=== PATIENT | female | born 1990 ===

== ENCOUNTER 2016-10-21 09:34 | Emergency (ER) | payer MEDICAID ==
[2016-10-21 09:44] VITALS: BP 116/80; PULSE 60; RESP 20; TEMP 98.5; O2SAT 97
--- NOTE | 2016-10-21 10:02 | ED PDOC ---
Arrival/HPI - General Chief Complaint: Back Pain Time Seen by Provider: 10/21/16 09:51 Historian: Patient - History of Present Illness Narrative History of Present Illness (Text): 10/21/16 09:50 Jerica Jensen is a 25 year old female who presents to the emergency department complaining of sharp, mid-lower back pain for 2 days. Patient states that sometimes she experiences shooting pain down her right leg and numbness to her right great toe. Patient notes that her pain worsens with walking and some movement. 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 Patient denies any fever, chills, chest pain, shortness of breath, nausea, vomiting, diarrhea, urinary symptoms, neck pain, headache, dizziness, or any other complaints. No saddle anesthesia. No weakness. No incontinence. Time/Duration: < week Symptom Onset: Gradual Symptom Course: Unchanged Severity Level: Moderate Activities at Onset: Rest Context: Home Past Medical History - Provider Review Nursing Documentation Reviewed: Yes - Infectious Disease Hx of Infectious Diseases: None - Pulmonary Hx Asthma: Yes - Psychiatric Hx Substance Use: Yes - Surgical History Other/Comment: cleft palate repair age of 1. - Anesthesia Hx Anesthesia: Yes Hx Anesthesia Reactions: No Hx Malignant Hyperthermia: No Family/Social History - Physician Review Nursing Documentation Reviewed: Yes Family/Social History: No Known Family HX Smoking Status: Never Smoked Hx Alcohol Use: No Hx Substance Use: Yes Substance used: marijuana Allergies/Home Meds Allergies/Adverse Reactions: Allergies pcn Adverse Reaction (Uncoded 10/21/16 09:44) RASH Home Medications: Home Meds Medication Instructions Recorded Confirmed Albuterol HFA [Ventolin HFA 90 2 inhaler INH QID PRN 10/21/16 10/21/16 mcg/actuation (8 g)] Review of Systems - Physician Review All systems were reviewed & negative as marked: Yes - Review of Systems Constitutional: absent: Fevers, Night Sweats Eyes: absent: Vision Changes ENT: absent: Hearing Changes Respiratory: absent: SOB Cardiovascular: absent: Chest Pain Gastrointestinal: absent: Abdominal Pain Genitourinary Female: absent: Dysuria, Urine Output Changes Musculoskeletal: Back Pain (with pain shooting down to right leg) Skin: absent: Rash Neurological: absent: Headache, Dizziness Endocrine: absent: Diaphoresis Hemo/Lymphatic: absent: Adenopathy Psychiatric: absent: Depression Physical Exam Vital Signs Reviewed: Yes Vital Signs Temp Pulse Resp BP Pulse Ox 10/21/16 09:36 98.5 F 60 20 116/80 97 Temperature: Afebrile Blood Pressure: Normal Pulse: Regular Respiratory Rate: Normal Appearance: Positive for: Well-Appearing, Non-Toxic, Comfortable Pain Distress: None Mental Status: Positive for: Alert and Oriented X 3 - Systems Exam Head: Present: Atraumatic, Normocephalic Pupils: Present: PERRL Extroacular Muscles: Present: EOMI Conjunctiva: Present: Normal Mouth: Present: Moist Mucous Membranes Neck: Present: Normal Range of Motion Respiratory/Chest: Present: Clear to Auscultation, Good Air Exchange. No: Respiratory Distress, Accessory Muscle Use Cardiovascular: Present: Regular Rate and Rhythm, Normal S1, S2. No: Murmurs Abdomen: Present: Normal Bowel Sounds. No: Tenderness, Distention, Peritoneal Signs Back: Present: Other (tenderness to right-sided lower lumbar and sciatic area; No incontinence, No saddle anesthesia, No weakness) Upper Extremity: Present: Normal Inspection. No: Cyanosis, Edema Lower Extremity: Present: Normal Inspection. No: Edema Neurological: Present: GCS=15, CN II-XII Intact, Speech Normal Skin: Present: Warm, Dry, Normal Color. No: Rashes Psychiatric: Present: Alert, Oriented x 3, Normal Insight, Normal Concentration Medical Decision Making ED Course and Treatment: 10/21/16 09:50 Impression: 25 year old female complaining of mid to right-sided lower back pain with shooting pains down right leg for 2 days. Differential Diagnosis include but are not limited to: Sciatica Plan: -- Flexeril -- Motrin Progress Notes: 10/21/16 10:05 Patient is able to walk without ataxia. She is not driving home so is able to take a dose of flexeril now. Given stretching exercises for sciatica. She will follow up with her primary care doctor. - Medication Orders Current Medication Orders: Discontinued Medications Cyclobenzaprine HCl (Flexeril) 5 mg PO STAT STA Stop: 10/21/16 09:57 Last Admin: 10/21/16 10:03 Dose: 5 mg Ibuprofen (Motrin Tab) 600 mg PO STAT STA Stop: 10/21/16 09:57 Last Admin: 06/03/17 10:03 Dose: 600 mg - Scribe Statement The provider has reviewed the documentation as recorded by the Steffen Espinosa Provider Scribe Attestation: All medical record entries made by the Annaibe were at my direction and personally dictated by me. I have reviewed the chart and agree that the record accurately reflects my personal performance of the history, physical exam, medical decision making, and the department course for this patient. I have also personally directed, reviewed, and agree with the discharge instructions and disposition. Disposition/Present on Arrival - Present on Arrival Any Indicators Present on Arrival: No History of DVT/PE: No History of Uncontrolled Diabetes: No Urinary Catheter: No History of Decub. Ulcer: No History Surgical Site Infection Following: None - Disposition Have Diagnosis and Disposition been Completed?: Yes Diagnosis: Sciatica Disposition: HOME/ ROUTINE Disposition Time: 10:12 Patient Plan: Discharge Condition: GOOD Discharge Instructions (ExitCare): Sciatica (ED) Additional Instructions: Mikey, thank you for letting us take care of you today. Your provider was Dr. Yanes. You were treated for Sciatica; Lumbar strain. The emergency medical care you received today was directed at your acute symptoms. If you were prescribed any medication, please fill it and take as directed. It may take several days for your symptoms to resolve. Return to the Emergency Department if your symptoms worsen, do not improve, or if you have any other problems. Please contact your doctor or call one of the physicians/clinics you have been referred to that are listed on the Patient Visit Information form that is included in your discharge packet. Bring any paperwork you were given at discharge with you along with any medications you are taking to your follow up visit. Our treatment cannot replace ongoing medical care by a primary care provider (PCP) outside of the emergency department. Thank you for allowing the [facility] team to be part of your care today. If you had an X-Ray or CT scan: A Radiologist will review the ED reading if any change in treatment is needed we will contact you. If you had a blood, urine, or wound culture: It will take several days for the results, if any change in treatment is needed we will contact you. If you had an STI test: It will take 48 hours for the results. Please call after 1 week if you have not heard back. Prescriptions: Cyclobenzaprine [Flexeril] 5 mg PO Q8 PRN #20 tab PRN Reason: Muscle Spasm Ibuprofen [Motrin] 600 mg PO Q6 PRN #30 tab PRN Reason: Pain, Moderate (4-7) Referrals: [facility], [Non-Staff] - Follow up with primary Forms: [employer] (Djiboutian), WORK NOTE
== END 2016-10-21 10:30 | disposition home or self-care (01) ==
LOC: ED 09:34
DX: M54.30 Sciatica, unspecified side (principal)

== ENCOUNTER 2017-07-01 20:12 | Emergency (ER) | payer MEDICAID ==
[2017-07-01 20:29] VITALS: TEMP 98.6
[2017-07-01] MEDS ORDERED: Morphine 2 mg/ml ISec IVP STA (20:34)
--- NOTE | 2017-07-01 20:42 | ED PDOC ---
Arrival/HPI - General Chief Complaint: Abdominal Pain Time Seen by Provider: 07/01/17 20:14 Historian: Patient EM Caveat: Acuity of Condition - History of Present Illness Narrative History of Present Illness (Text): 07/01/17 20:36 Pt is a 26 year old female who presents with severe abdominal pain and nausea and vaginal bleeding since this morning s/p D&C on Sunday by [employer] Dr. Sara Pacheco. Pt reports an uncomplicated procedure after a failed of 6 1/2 weeks. Pt began to experience intense cramping and passing blood clots this am. Denies foul vaginal odor, syncope, chest pain, shortness of breath, headache, GIB, fever, chills, diarrhea. Pt states a loss of approx 2 cups of blood and clots since 4pm today. Time/Duration: Prior to Arrival, 4-6 hours Symptom Onset: Sudden Symptom Course: Worsening Quality: Aching, Cramping Severity Level: 10, Moderate, Severe Activities at Onset: Rest, Light Context: Home Past Medical History - Provider Review Nursing Documentation Reviewed: Yes - Travel History Have you recently traveled outside [place] w/in the past 3 mons?: No - Infectious Disease Hx of Infectious Diseases: None - Pulmonary Hx Asthma: Yes - Endocrine/Metabolic Hx Hypothyroidism: No - Hematological/Oncological Hx AIDS: No - Integumentary Hx Basal Cell Carcinoma: No - Musculoskeletal/Rheumatological Hx Falls: No - Gastrointestinal Hx Gastrointestinal Disorders: No - Genitourinary/Gynecological Hx Genitourinary Disorders: Yes Other/Comment: D&C 06/30/17 - Psychiatric Hx Psychophysiologic Disorder: No Hx Substance Use: Yes - Surgical History Hx Dilation and Curettage: Yes (06/30/17) Other/Comment: cleft palate repair age of 1. - Anesthesia Hx Anesthesia: Yes Hx Anesthesia Reactions: No Hx Malignant Hyperthermia: No Family/Social History - Physician Review Nursing Documentation Reviewed: Yes Family/Social History: Unknown Family HX Smoking Status: Never Smoked Hx Alcohol Use: No Hx Substance Use: Yes Substance used: marijuana Allergies/Home Meds Allergies/Adverse Reactions: Allergies Penicillins Adverse Reaction (Mild, Verified 07/01/17 20:24) RASH Review of Systems - Review of Systems Constitutional: Normal Eyes: Normal ENT: Normal Respiratory: Normal Cardiovascular: Normal Gastrointestinal: Abdominal Pain, Nausea, Vomiting Genitourinary Female: Normal, Vaginal Bleeding (passing clots) Musculoskeletal: Normal Skin: Normal Neurological: Normal Endocrine: Normal Hemo/Lymphatic: Normal Psychiatric: Normal Physical Exam Vital Signs Reviewed: Yes Vital Signs Temp Pulse Resp BP Pulse Ox 07/01/17 20:26 98.6 F 94 H 18 118/73 98 Temperature: Afebrile Blood Pressure: Normal Pulse: Regular Respiratory Rate: Normal Appearance: Positive for: Uncomfortable Pain Distress: Severe Mental Status: Positive for: Alert and Oriented X 3 - Systems Exam Head: Present: Atraumatic, Normocephalic Pupils: Present: PERRL Extroacular Muscles: Present: EOMI Conjunctiva: Present: Normal Mouth: Present: Moist Mucous Membranes Neck: Present: Normal Range of Motion Respiratory/Chest: Present: Clear to Auscultation, Good Air Exchange. No: Respiratory Distress, Accessory Muscle Use Cardiovascular: Present: Regular Rate and Rhythm, Normal S1, S2. No: Murmurs Abdomen: Present: Tenderness, Normal Bowel Sounds. No: Distention, Peritoneal Signs Genitourinary/Pelvic Exam: Present: Vaginal Bleeding Back: Present: Normal Inspection Upper Extremity: Present: Normal Inspection. No: Cyanosis, Edema Lower Extremity: Present: Normal Inspection. No: Edema Neurological: Present: GCS=15, CN II-XII Intact, Speech Normal Skin: Present: Warm, Dry, Normal Color. No: Rashes Psychiatric: Present: Alert, Oriented x 3, Normal Insight, Normal Concentration Medical Decision Making ED Course and Treatment: 07/01/17 20:45 Impression Pt is a 26 year old female who presents with severe abdominal pain and nausea and vaginal bleeding since this morning s/p D&C on Sunday by [employer] Dr. Sara Pacheco. Plan Pain management-->Morphine 2 mg ivp Zofran for nausea and emesis CBC, CMP, UA Progress Note After receiving zofran and morphine, pt lying comfortably in bed PE sig for LLQ pain and suprapubic pain on palpation; Pelvic exam reveals blood at the introitus, no clots appreciated; Dispo home with Naproxen 500 mg q12 F/U w [employer] - Lab Interpretations Lab Results: 07/01/17 20:35 07/01/17 20:35 Lab Results 07/01/17 20:35: Sodium 141, Potassium 3.7, Chloride 102, Carbon Dioxide 24, Anion Gap 18, BUN 7, Creatinine 0.7, Est GFR ( Amer) > 60, Est GFR (Non- Af Amer) > 60, Random Glucose 131 H, Calcium 9.4, Total Bilirubin 0.8, AST 22, ALT 28, Alkaline Phosphatase 69, Total Protein 7.8, Albumin 4.4, Globulin 3.4, Albumin/Globulin Ratio 1.3 07/01/17 20:35: WBC 12.0 H, RBC 4.60, Hgb 13.5, Hct 39.2, MCV 85.2, MCH 29.3, MCHC 34.4, RDW 13.1, Plt Count 202, MPV 10.6, Gran % 80.0 H, Lymph % (Auto) 14.5 L, Mccormick % (Auto) 4.3, Eos % (Auto) 0.9 L, Baso % (Auto) 0.3, Gran # 9.61 H , Lymph # (Auto) 1.7, Mccormick # (Auto) 0.5, Eos # (Auto) 0.1, Baso # (Auto) 0.03 - Medication Orders Current Medication Orders: Discontinued Medications Morphine Sulfate (Morphine) 2 mg IVP STAT STA Stop: 07/01/17 20:35 Last Admin: 07/01/17 20:45 Dose: 2 mg MAR Pain Assessment Document 07/01/17 20:45 JOL (Rec: 07/01/17 20:45 [id number] Pain Reassessment Is this a pain reassessment? No Sleep Is patient sleeping during reassessment? No Presence of Pain Presence of Pain Yes Pain Scale Used Pain Scale Used Numeric Location Upper or Lower Lower Pain Location Body Site Abdomen Description Intensity of Pain at present 8 Acceptable Level of Pain 2 Pain Behavior Moaning Withdrawal from Touch Grasping Site Restlessness Facial Grimacing IVP Administration Document 07/01/17 20:45 JOL (Rec: 07/01/17 20:45 JOL [id number]) Charges for Administration # of IVP Administrations 1 Ondansetron HCl (Zofran Inj) 4 mg IVP STAT STA Stop: 07/01/17 20:35 Last Admin: 07/01/17 20:45 Dose: 4 mg IVP Administration Document 07/01/17 20:45 JOL (Rec: 07/01/17 20:45 JOL [id number]) Charges for Administration # of IVP Administrations 1 Disposition/Present on Arrival - Present on Arrival Any Indicators Present on Arrival: Yes History of DVT/PE: No History of Uncontrolled Diabetes: No Urinary Catheter: No History of Decub. Ulcer: No History Surgical Site Infection Following: None - Disposition Have Diagnosis and Disposition been Completed?: Yes Diagnosis: Dysmenorrhea, Uterine cramping Disposition: HOME/ ROUTINE Disposition Time: 21:54 Patient Plan: Discharge Condition: STABLE Discharge Instructions (ExitCare): Dysmenorrhea (ED), Naproxen (By mouth) Additional Instructions: Dear Jerica, We are sending you home with a medication that works well to relieve uterine cramping and inflammation. Please ensure that you take the medication as directed, drink plenty of fluids and rest. Take the Naproxen to reduce pain and inflammation but make sure you have a meal first before taking it. You may also try a warm compress on the low back and a cool ice/gel pack on the lower abdominal area to give you relief. If you experience severe fever, pain, chest or abdominal pain or shortness of breath of any other alarming symptoms, return to the emergency room immediately. Please follow up with your Primary Doctor and [employer] as soon as possible. All the best in your recovery. Prescriptions: Naproxen 500 mg PO Q12 5 Days #10 ect Referrals: Kai Raman, [Non-Staff] - Follow up with primary Forms: [email or web address] (Surinamese)
[2017-07-01 21:18] LABS: BASO # 0.03 K/mm3 (0.0-2.0); BASO % 0.3 % (0.0-3.0); EOS # 0.1 (0.0-0.7); EOS % 0.9 % (1.5-5.0); GRAN # 9.61 (1.4-6.5); HEMOGLOBIN 13.5 g/dL (12.0-16.0); LYMPH # 1.7 (1.2-3.4); LYMPH % 14.5 % (22.0-35.0); MEAN CELL VOLUME 85.2 fl (80.0-105.0); MEAN CORPUSCULAR HEMOGLOBIN 29.3 pg (25.0-35.0); MEAN CORPUSCULAR HGB CONC 34.4 g/dl (31.0-37.0); MEAN PLATELET VOLUME 10.6 fl (7.0-11.0); MONO # 0.5 (0.1-0.6); MONO % 4.3 % (1.0-6.0); RBC 4.6 10^6/uL (3.5-6.1); RED CELL DISTRIBUTION WIDTH 13.1 % (11.5-14.5)
[2017-07-01 21:19] LABS: ALB/GLOB RATIO 1.3 (1.1-1.8); ALBUMIN 4.4 g/dL (3.0-4.8); ALT/SGPT 28 U/L (7-56); AST/SGOT 22 U/L (14-36); BLOOD UREA NITROGEN 7 mg/dL (7-21); CALCIUM 9.4 mg/dL (8.4-10.5); GFR AFRICAN-AMERICAN > 60; GFR NON-AFRICAN AMERICAN > 60
[2017-07-01 22:36] VITALS: BP 120/74; PULSE 88; RESP 17; O2SAT 100
== END 2017-07-01 22:37 | disposition home or self-care (01) ==
LOC: ED 20:12
DX: N94.6 Dysmenorrhea, unspecified (principal)
CPT/HCPCS: 80053; 85025; 96374; 96375; 99284; J2270; J2405